=== PATIENT | male | born 1990 | race American Indian/Alaskan Native ===

== ENCOUNTER 2018-01-28 12:43 | Emergency (ER) | payer MEDICAID ==
[2018-01-28 12:58] VITALS: BP 133/78
== END 2018-01-28 15:00 ==
LOC: ED 12:43
DX: S90.852A Superficial foreign body, left foot, initial encounter (principal); Z53.21 Procedure and treatment not carried out due to patient leaving prior to being seen by health care provider; X58.XXXA Exposure to other specified factors, initial encounter; Y93.89 Activity, other specified; Y99.8 Other external cause status; Y92.89 Other specified places as the place of occurrence of the external cause